=== PATIENT | female | born 1950 | race Caucasian/White ===

== ENCOUNTER 2020-10-13 12:08 | Day surgery (SDC) | payer MEDICARE ==
[2020-10-13] VITALS (10 sets, daily range): BP systolic 121–153; BP diastolic 53–90
[~2020-10-13] VITALS: Ht 152.4 cm; Wt 63.3 kg
[~2020-10-13 12:08] MED LIST: INDOCYANINE GREEN 25 MG/10 ML VIAL IV ONE; cefazolin/dext.iso 2gm/100ml IV ONE; famotidine 20mg tablet PO ONE; ringers solution, lacted 1,000 ML IV SCH
[2020-10-13] MEDS ORDERED: METO50TA7 PO (12:58)
[2020-10-13] MEDS ORDERED: LORA-269 PO (12:58)
[2020-10-13] MEDS ORDERED: ONDA4TAB6 PO (13:01)
[2020-10-13] MEDS ORDERED: POTA10CA44 PO (13:03)
[2020-10-13] MEDS ORDERED: PANT40TA54 PO (13:03)
[2020-10-13] MEDS ORDERED: ROSU10TA2 PO (13:06)
[2020-10-13] MEDS ORDERED: TRIA1TAB3 PO (13:08)
[2020-10-13 13:59] LABS: BASOPHILS % (AUTO) 0.4 % (0-1); MONOCYTES # (AUTO) 0.3 X10'3 (0-0.9); NEUTROPHILS # (AUTO) 4.8 X10'3 (1.8-7.7); PRE OP HEMATOCRIT 40.5 % (35.0-45.0)
[2020-10-13] MEDS ORDERED: meperidine/PF 25mg/ml syringe IV PRN ×3 (14:00)
[2020-10-13] MEDS ORDERED: morphine 2 MG/ML inj. syringe IV PRN (14:00)
[2020-10-13] MEDS ORDERED: ringers solution, lacted 1,000 ML IV SCH (14:00)
[2020-10-13] MEDS ORDERED: morphine 4 MG/ML inj SYRINge IV PRN (14:00)
[2020-10-13] MEDS ORDERED: ondansetron/PF 4mg/2ml inj IV PRN (14:00)
[2020-10-13 14:01] LABS: EOSINOPHILS % (AUTO) 0.5 % (0-6); LYMPHOCYTES # (AUTO) 2.1 X10'3 (1.1-4.8); LYMPHOCYTES % (AUTO) 28.3 % (21-51); MEAN CORPUSCULAR HEMOGLOBIN 28.2 PG (27.0-31.0); MEAN CORPUSCULAR HGB CONC 33.6 g/dL (33.0-36.5); MEAN CORPUSCULAR VOLUME 83.9 FL (78-98); MEAN PLATELET VOLUME 7.9 FL (7.4-10.4); MONOCYTES % (AUTO) 4.4 % (2-12); NEUTROPHILS % (AUTO) 66.4 % (42-75); PRE OP HEMOGLOBIN 13.6 g/dL (12.0-16.0); PRE OP PLATELET COUNT 331 X10'3 (140-440); RED BLOOD COUNT 4.83 X10'6 (4.20-5.60); RED CELL DISTRIBUTION WIDTH 14.9 % (11.5-14.5)
[2020-10-13 14:02] LABS: ALBUMIN/GLOBULIN RATIO 1.2 (1.1-1.5); ALKALINE PHOSPHATASE 72 IU/L (46-116); BLOOD UREA NITROGEN 15 MG/DL (7-18); BUN/CREATININE RATIO 25.4 (6.6-38.0); CALCIUM 9.3 MG/DL (8.5-10.1); CHLORIDE 103 MMOL/L (99-107); CREATININE 0.59 MG/DL (0.40-0.90); PRE OP ALT 14 U/L (30-65); PRE OP ANION GAP 11 (8-16); PRE OP AST 17 U/L (10-37); PRE OP BILIRUB, TOTAL 0.7 MG/DL (0.0-1.0); PRE OP GLUCOSE 92 MG/DL (70-104); PRE OP SODIUM 138 MMOL/L (135-145); TOTAL CARBON DIOXIDE 24.2 MMOL/L (24-32); TOTAL PROTEIN 7.3 G/DL (6.4-8.2); eGFR > 90 ML/MIN
[2020-10-13 14:08] LABS: PRE OP POTASSIUM 3.3 MMOL/L (3.4-5.1)
[2020-10-13] MEDS ORDERED: potassium Cl 20 mEq SR tablet PO STA (14:33)
--- NOTE | 2020-10-13 14:50 | NUR ---
[place] GREEN GIVEN AT 1450. WOULD NOT RE-SCAN. PHARMACY EMPLOYEE CHERIE DIAZ.
[2020-10-13] MEDS ORDERED: LIDOcaine 1% 30ml preserv. free vial ONE (16:39)
[2020-10-13] MEDS ORDERED: BUPIVAcaine/PF 2.5 mg/ml (0.25%) 30ml vial ONE (16:39)
[2020-10-13] MEDS ORDERED: midazolam 1 mg/ML 2ml injection ONE (16:49)
[2020-10-13] MEDS ORDERED: fentaNYL/PF 50MCG/1 ML 2ML syringe ONE (16:49)
[2020-10-13] MEDS ORDERED: LIDOcaine 2% (20mg/ml) 5ml vial ONE (16:49)
[2020-10-13] MEDS ORDERED: propofol inj 20 ML IV ONE (16:49)
[2020-10-13] MEDS ORDERED: rocuronium 10mg/ml inj IV ONE (16:50)
[2020-10-13] MEDS ORDERED: ondansetron/PF 4mg/2ml inj ONE (17:14)
[2020-10-13] MEDS ORDERED: meperidine/PF 25mg/ml syringe ONE (17:26)
[2020-10-13] MEDS ORDERED: acetaminophen 1,000mg/100ml IV 100 ML IV ONE (17:49)
[2020-10-13] MEDS ORDERED: neostigmine methylsulfate 1 MG/ML 10ml vial ONE (18:03)
[2020-10-13] MEDS ORDERED: glycopyrrolate 0.2mg/ml inj ONE (18:03)
--- NOTE | 2020-10-13 18:22 | NUR ---
Received from OR via [facility], accompanied by Anesthesiologist DR ELIZABETH and report given by Anesthesiologist. PT DROWSY, DENIES PAIN, ABDOMEN W/4 LAP SITES W/BANDAIDS CDI. Addendum: 10/13/20 at 1834 by Nancy Ceron RN Amended: Links added.
[2020-10-13] MEDS ORDERED: oxyCODONE/APAP 5-325mg tablet PO PRN ×2 (18:40)
[2020-10-13] MEDS: proCHLORperazine 10 MG/2 ml inj IV PRN ×2 (18:51→19:08)
--- NOTE | 2020-10-13 19:43 | NUR ---
PT NAUSEA SUBSIDED, DENIES PAIN. PT ABLE TO SAFELY AMBULATE. D/C INSTRUCTIONS GIVEN AND GONE OVER W/PT WHO VERBALIZED UNDERSTANDING. PT D/CD TO HOME VIA W/C TO PRIVATE VEHICLE W/O INCIDENT. Addendum: 10/13/20 at 2005 by Nancy Ceron RN Amended: Links added.
== END 2020-10-13 19:43 | disposition home or self-care (01) ==
LOC: PAS 12:08
PROVIDERS: ATTEND Surgery
DX: K80.12 Calculus of gallbladder with acute and chronic cholecystitis without obstruction (principal); K42.9 Umbilical hernia without obstruction or gangrene; I10 Essential (primary) hypertension; K21.9 Gastro-esophageal reflux disease without esophagitis; E78.5 Hyperlipidemia, unspecified; M17.0 Bilateral primary osteoarthritis of knee; F32.9 Major depressive disorder, single episode, unspecified; E11.9 Type 2 diabetes mellitus without complications; Z96.651 Presence of right artificial knee joint; Z98.890 Other specified postprocedural states; Z79.899 Other long term (current) drug therapy; Z72.89 Other problems related to lifestyle
CPT/HCPCS: 47563; 49585; 80053; 82948; 85025; 93005; J0131; J0780; J2001; J2175; J2250; J2405; J2704; J2710; J3010; J3490; A4215; A4618; A7000; J7120